=== PATIENT | female | born 1985 | race African-American/Black ===

== ENCOUNTER 2017-02-06 22:33 | Emergency (ER) | payer MEDICAID, OTHER ==
[~2017-02-06] VITALS: Ht 157.5 cm; Wt 73.0 kg
[~2017-02-06 22:33] MED LIST: ATIVAN; SEROQUEL
[2017-02-07 01:05] LABS: BASOPHILS % 0.5 % (0.0-2.0); EOSINOPHILS % 0.8 % (0.0-5.0); HEMATOCRIT. 39.2 % (36.0-48.0); HEMOGLOBIN. 12.6 g/dL (12.0-16.0); LYMPHOCYTES % 16.9 % (20.0-50.0); MEAN CORPUSCULAR HEMOGLOBIN 24.5 pg (28.0-32.0); MEAN CORPUSCULAR VOLUME 76.4 fL (81.0-99.0); MEAN PLATELET VOLUME 8.4 fl (7.4-10.4); NEUTROPHILS % 70.8 % (40.0-76.0); PLATELET 293 x1000/uL (130-400); RED BLOOD CELL COUNT 5.14 mill/uL (4.2-5.4); RED CELL DISTRIBUTION WIDTH 21.7 % (11.6-14.6)
[2017-02-07 01:09] LABS: CHLORIDE 106 mEq/L (98-107)
[2017-02-07 01:19] LABS: CARBON DIOXIDE 22 mEq/L (21-32); ETHANOL BLOOD < 10 mg/dL; HCG SCREEN NEGATIVE
[2017-02-07] MEDS ORDERED: SODIUM CHLORIDE 0.9% 1,000 ML IV ONE ×2 (01:47→06:58)
[2017-02-07 02:00] LABS: CLARITY URINE TURBID (CLEAR); COLOR URINE DARK YELLOW (YELLOW); KETONES URINE 3+ (NEGATIVE); LEUKOCYTE ESTERASE URINE 1+ (NEGATIVE); NITRITE URINE POSITIVE (NEGATIVE); OCCULT BLOOD URINE NEGATIVE (NEGATIVE); PH URINE 5.5 (4.5-8.0); PROTEIN URINE 1+ (NEGATIVE); SPECIFIC GRAVITY URINE 1.034 (1.005-1.030)
[2017-02-07] MEDS ORDERED: OLANZAPINE 2.5MG TABLET PO SCH ×2 (02:15→09:00)
[2017-02-07 02:37] LABS: *BARBITURATES SCREEN URINE NEGATIVE (NEGATIVE); *BENZODIAZEPINES SCREEN URINE NEGATIVE (NEGATIVE); *COCAINE SCREEN URINE NEGATIVE (NEGATIVE); METHADONE URINE SCREEN NEGATIVE (NEGATIVE); OPIATES URINE SCREEN NEGATIVE (NEGATIVE); PHENCYCLIDINE URINE SCREEN NEGATIVE (NEGATIVE)
[2017-02-07 02:41] LABS: *AMPHETAMINES SCREEN URINE PRESUMTIVE POSITIVE (NEGATIVE); CANNABINOID URINE SCREEN PRESUMTIVE POSITIVE (NEGATIVE)
[2017-02-07] MEDS ORDERED: CEFTRIAXONE SODIUM 250 MG/VIAL IM ONE (03:45)
[2017-02-07] MEDS ORDERED: LIDOCAINE HCL 1% 20ML VIAL (Pyxis) INJ INFIL ONE (04:45)
[2017-02-07] MEDS ORDERED: LORAZEPAM 2MG/ML CPJ IV STA (06:58)
[2017-02-07 12:54] VITALS: BP 111/71
== END 2017-02-07 14:54 | disposition home or self-care (01) ==
LOC: ER 22:59
DX: T43.621A Poisoning by amphetamines, accidental (unintentional), initial encounter (principal); G92 Toxic encephalopathy; F20.9 Schizophrenia, unspecified; D72.829 Elevated white blood cell count, unspecified; E87.6 Hypokalemia; N39.0 Urinary tract infection, site not specified; R00.0 Tachycardia, unspecified; F12.10 Cannabis abuse, uncomplicated; Z59.0 Homelessness; Y92.488 Other paved roadways as the place of occurrence of the external cause
CPT/HCPCS: 36415; 80053; 80305; 81001; 82962; 84703; 85025; 93005; 96361; 96372; 96374; 99285; G0482; J0696; J2060; J3490; Z7610; J7030

== ENCOUNTER 2020-02-14 19:36 | Emergency (ER) | payer MEDICAID ==
[~2020-02-14] VITALS: Ht 165.1 cm; Wt 64.0 kg
[2020-02-14] MEDS ORDERED: SODIUM CHLORIDE 0.9% 1,000 ML IV ONE (23:45)
[2020-02-14] MEDS ORDERED: LORAZEPAM 1MG TABLET PO ONE (23:45)
[2020-02-15 00:37] LABS: BASOPHILS % 0.2 % (0.0-2.0); EOSINOPHILS % 0.7 % (0.0-5.0); HEMATOCRIT. 42.8 % (36.0-48.0); HEMOGLOBIN. 14.4 g/dL (12.0-16.0); MEAN CORPUSCULAR HEMOGLOBIN 28.6 pg (28.0-32.0); MEAN CORPUSCULAR VOLUME 85.2 fL (81.0-99.0); MEAN PLATELET VOLUME 8.9 fl (7.4-10.4); MONOCYTES % 7.2 % (2.0-8.0); NEUTROPHILS % 58.9 % (40.0-76.0); PLATELET 237 x1000/uL (130-400); RED BLOOD CELL COUNT 5.03 mill/uL (4.2-5.4); RED CELL DISTRIBUTION WIDTH 13.5 % (11.6-14.6)
[2020-02-15 00:45] LABS: CHLORIDE 105 mEq/L (98-107)
[2020-02-15 00:50] LABS: ETHANOL BLOOD < 10 mg/dL
[2020-02-15 00:55] LABS: HCG SCREEN NEGATIVE
[2020-02-15 03:55] VITALS: BP 119/84
== END 2020-02-15 03:55 | disposition home or self-care (01) ==
LOC: ER 19:36
DX: R00.0 Tachycardia, unspecified (principal); T43.625A Adverse effect of amphetamines, initial encounter; Y93.89 Activity, other specified
CPT/HCPCS: 36415; 80053; 80320; 84703; 85025; 93005; 96360; 99284; J7030; G0480

== ENCOUNTER 2020-04-25 09:19 | Emergency (ER) | payer MEDICAID ==
[~2020-04-25] VITALS: Ht 167.6 cm; Wt 73.0 kg
[2020-04-25 09:24] VITALS: BP 114/60
[2020-04-25] MEDS ORDERED: ACETAMINOPHEN 325MG TABLET PO STA (09:45)
[2020-04-25] MEDS ORDERED: METOCLOPRAMIDE HCL 10MG TABLET PO ONE (09:45)
[2020-04-25] MEDS ORDERED: METOCLOPRAMIDE HCL 10MG/2ML VIAL IM ONE (10:00)
[2020-04-25] MEDS ORDERED: LORAZEPAM 2MG/ML CPJ IM ONE (10:30)
[2020-04-25 10:32] LABS: BASOPHILS % 0.7 % (0.0-2.0); EOSINOPHILS % 0.6 % (0.0-5.0); HEMATOCRIT. 38.9 % (36.0-48.0); HEMOGLOBIN. 13.1 g/dL (12.0-16.0); LYMPHOCYTES % 23.8 % (20.0-50.0); MEAN CORPUSCULAR HEMOGLOBIN 28.9 pg (28.0-32.0); MEAN CORPUSCULAR VOLUME 85.7 fL (81.0-99.0); MEAN PLATELET VOLUME 8.2 fl (7.4-10.4); MONOCYTES % 7.2 % (2.0-8.0); NEUTROPHILS % 67.7 % (40.0-76.0); PLATELET 219 x1000/uL (130-400); RED BLOOD CELL COUNT 4.53 mill/uL (4.2-5.4); RED CELL DISTRIBUTION WIDTH 14.9 % (11.6-14.6)
[2020-04-25 10:39] LABS: CHLORIDE 106 mEq/L (98-107)
[2020-04-25 10:43] LABS: ETHANOL BLOOD < 10 mg/dL
[2020-04-25 14:32] LABS: CLARITY URINE CLEAR (CLEAR); COLOR URINE ORANGE (YELLOW); KETONES URINE NEGATIVE (NEGATIVE); LEUKOCYTE ESTERASE URINE 3+ (NEGATIVE); NITRITE URINE NEGATIVE (NEGATIVE); OCCULT BLOOD URINE NEGATIVE (NEGATIVE); PROTEIN URINE NEGATIVE (NEGATIVE); SPECIFIC GRAVITY URINE 1.012 (1.005-1.030)
[2020-04-25 14:53] LABS: *BARBITURATES SCREEN URINE NEGATIVE (NEGATIVE); CANNABINOID URINE SCREEN NEGATIVE (NEGATIVE); PHENCYCLIDINE URINE SCREEN NEGATIVE (NEGATIVE)
[2020-04-25 14:54] LABS: *BENZODIAZEPINES SCREEN URINE NEGATIVE (NEGATIVE); *COCAINE SCREEN URINE NEGATIVE (NEGATIVE); METHADONE URINE SCREEN NEGATIVE (NEGATIVE); OPIATES URINE SCREEN NEGATIVE (NEGATIVE)
[2020-04-25 15:08] LABS: *AMPHETAMINES SCREEN URINE PRESUMTIVE POSITIVE (NEGATIVE)
== END 2020-04-25 15:31 | disposition home or self-care (01) ==
LOC: ER 09:19
DX: R51.9 Headache, unspecified (principal); F15.10 Other stimulant abuse, uncomplicated
CPT/HCPCS: 36415; 80053; 80305; 80320; 81003; 85025; 87077; 87086; 87186; 96372; 99284; J2060; J2765; Z7610; G0480

== ENCOUNTER 2020-06-07 18:15 | Emergency (ER) | payer MEDICAID ==
[~2020-06-07] VITALS: Ht 165.1 cm; Wt 79.4 kg
[2020-06-07] MEDS ORDERED: OFLO5DRO4 RIGHT EAR (18:40)
[2020-06-07] MEDS ORDERED: TOPUD PO (18:40)
[2020-06-07] MEDS ORDERED: ACETAMINOPHEN 325MG TABLET PO ONE (18:45)
[2020-06-07 19:10] VITALS: BP 164/72
== END 2020-06-07 19:11 | disposition home or self-care (01) ==
LOC: ER 18:15
DX: H60.91 Unspecified otitis externa, right ear (principal); E11.9 Type 2 diabetes mellitus without complications
CPT/HCPCS: 99283

== ENCOUNTER 2020-08-14 23:29 | Observation (INO) | payer MEDICAID ==
[~2020-08-14] VITALS: Ht 163.8 cm; Wt 95.3 kg
[~2020-08-14 23:29] MED LIST changes: +OFLO5DRO4 RIGHT EAR; +TOPUD PO
[2020-08-14] MEDS ORDERED: INSULIN (23:45)
[2020-08-14] MEDS ORDERED: [UNRECOGNIZED DRUG - OTHER] (23:45)
[2020-08-14] MEDS ORDERED: HALDOL (23:45)
[2020-08-14] MEDS ORDERED: PREN-176 PO (23:46)
[2020-08-15] MEDS: LACTATED RINGERS 1,000 ML IV SCH ×3 (01:27→05:17)
[2020-08-15 01:45] LABS: BASOPHILS % 0.3 % (0.0-2.0); EOSINOPHILS % 1.7 % (0.0-5.0); HEMATOCRIT. 36.4 % (36.0-48.0); HEMOGLOBIN. 12.4 g/dL (12.0-16.0); LYMPHOCYTES % 22.1 % (20.0-50.0); MEAN CORPUSCULAR HEMOGLOBIN 29.8 pg (28.0-32.0); MEAN CORPUSCULAR VOLUME 87.3 fL (81.0-99.0); MEAN PLATELET VOLUME 8.2 fl (7.4-10.4); MONOCYTES % 5.8 % (2.0-8.0); NEUTROPHILS % 70.1 % (40.0-76.0); PLATELET 143 x1000/uL (130-400); RED BLOOD CELL COUNT 4.17 mill/uL (4.2-5.4); RED CELL DISTRIBUTION WIDTH 14.4 % (11.6-14.6)
[2020-08-15 01:53] LABS: CHLORIDE 105 mEq/L (98-107)
[2020-08-15 01:58] LABS: D-DIMER 1.19 mg/L FEU (<0.50); INR 0.9; PARTIAL THROMBOPLASTIN TIME 24.9 sec (23.4-31.0); PROTHROMBIN TIME 10.2 sec (9.6-11.0)
[2020-08-15 02:21] LABS: HEPATITIS B SURFACE ANTIGEN NEGATIVE
[2020-08-15 03:04] LABS: CLARITY URINE CLEAR (CLEAR); COLOR URINE YELLOW (YELLOW); KETONES URINE TRACE (NEGATIVE); LEUKOCYTE ESTERASE URINE 1+ (NEGATIVE); NITRITE URINE NEGATIVE (NEGATIVE); OCCULT BLOOD URINE NEGATIVE (NEGATIVE); PROTEIN URINE NEGATIVE (NEGATIVE); SPECIFIC GRAVITY URINE 1.029 (1.005-1.030)
[2020-08-15 03:19] LABS: *BARBITURATES SCREEN URINE NEGATIVE (NEGATIVE); *BENZODIAZEPINES SCREEN URINE NEGATIVE (NEGATIVE)
[2020-08-15 03:20] LABS: *COCAINE SCREEN URINE NEGATIVE (NEGATIVE); CANNABINOID URINE SCREEN NEGATIVE (NEGATIVE); METHADONE URINE SCREEN NEGATIVE (NEGATIVE); OPIATES URINE SCREEN NEGATIVE (NEGATIVE); PHENCYCLIDINE URINE SCREEN NEGATIVE (NEGATIVE)
[2020-08-15 03:25] LABS: *AMPHETAMINES SCREEN URINE PRESUMTIVE POSITIVE (NEGATIVE)
[2020-08-15] MEDS ORDERED: TERBUTALINE SULFATE 1MG/ML VIAL SUBCUT PRN (05:00)
[2020-08-15] MEDS ORDERED: TERBUTALINE SULFATE 1MG/ML VIAL ONE (05:09)
[2020-08-15] MEDS ORDERED: INSULIN LISPRO 100 UNITS/ML SUBCUT SCH (13:00)
[2020-08-15] MEDS ORDERED: BLOOD SUGAR DIAGNOSTIC STRIP TEST SCH (13:00)
[2020-08-15] MEDS ORDERED: METFORMIN HCL 500MG TABLET PO SCH (17:00)
== END 2020-08-15 14:35 | disposition home or self-care (01) ==
LOC: 8 EST LDRP 23:29 → UNDODISOB 08-15 07:50 → 8 EST A/PP 08-15 10:18
PROVIDERS: ADMIT Obstetrics & Gynecology; ATTEND Obstetrics & Gynecology
DX: O26.892 Other specified pregnancy related conditions, second trimester (principal); R10.9 Unspecified abdominal pain; O99.342 Other mental disorders complicating pregnancy, second trimester; F20.9 Schizophrenia, unspecified; F31.9 Bipolar disorder, unspecified; O99.413 Diseases of the circulatory system complicating pregnancy, third trimester; E78.5 Hyperlipidemia, unspecified; O24.912 Unspecified diabetes mellitus in pregnancy, second trimester; Z3A.25 25 weeks gestation of pregnancy; Z79.899 Other long term (current) drug therapy
CPT/HCPCS: 36415; 59025; 76805; 76818; 80053; 80305; 80359; 81003; 84550; 85025; 85379; 85384; 85610; 85730; 86592; 86703; 86762; 86850; 86900; 86901; 87340; 96360; 96361; 96372; G0378; J3105

== ENCOUNTER 2020-08-15 08:10 | Emergency (ER) | payer MEDICAID ==
[~2020-08-15] VITALS: Ht 162.6 cm; Wt 96.0 kg
[~2020-08-15 08:10] MED LIST changes: +HALDOL; +INSULIN; +PREN-176 PO; +[UNRECOGNIZED DRUG - OTHER]
[2020-08-15 09:17] VITALS: BP 121/67
== END 2020-08-15 09:25 | disposition home or self-care (01) ==
LOC: ER 08:10
DX: O26.893 Other specified pregnancy related conditions, third trimester (principal); O98.513 Other viral diseases complicating pregnancy, third trimester; O99.513 Diseases of the respiratory system complicating pregnancy, third trimester; F15.10 Other stimulant abuse, uncomplicated; Z20.822 Contact with and (suspected) exposure to COVID-19; Z13.9 Encounter for screening, unspecified; Z3A.28 28 weeks gestation of pregnancy
CPT/HCPCS: 36415; 80307; 80329; 87426; 96360; 96361; 96372; 99281; 99283

== ENCOUNTER 2020-11-21 18:23 | Emergency (ER) | payer MEDICAID, OTHER ==
[~2020-11-21] VITALS: Ht 167.6 cm; Wt 90.0 kg
[2020-11-21] MEDS ORDERED: ACETAMINOPHEN 325MG TABLET PO STA (18:59)
[2020-11-21 19:18] LABS: HEMATOCRIT. 39.5 % (36.0-48.0); HEMOGLOBIN. 13.3 g/dL (12.0-16.0); MEAN CORPUSCULAR HEMOGLOBIN 28.6 pg (28.0-32.0); MEAN CORPUSCULAR VOLUME 85.3 fL (81.0-99.0); MEAN PLATELET VOLUME 8.7 fl (7.4-10.4); PLATELET 219 x1000/uL (130-400); RED BLOOD CELL COUNT 4.63 mill/uL (4.2-5.4); RED CELL DISTRIBUTION WIDTH 14.3 % (11.6-14.6)
[2020-11-21 19:23] LABS: CHLORIDE 108 mEq/L (98-107)
[2020-11-21 19:26] LABS: INR 0.9; PROTHROMBIN TIME 10.1 sec (9.6-11.0)
[2020-11-21 19:30] LABS: HCG SCREEN NEGATIVE
[2020-11-21 19:41] LABS: PLATELET ESTIMATE NORMAL
[2020-11-21 19:56] LABS: CLARITY URINE CLEAR (CLEAR); COLOR URINE YELLOW (YELLOW); KETONES URINE NEGATIVE (NEGATIVE); LEUKOCYTE ESTERASE URINE 1+ (NEGATIVE); NITRITE URINE NEGATIVE (NEGATIVE); OCCULT BLOOD URINE NEGATIVE (NEGATIVE); PROTEIN URINE NEGATIVE (NEGATIVE); UROBILINOGEN URINE 0.2 E.U./dL (0.2-1.0)
[2020-11-21 20:07] LABS: *AMPHETAMINES SCREEN URINE NEGATIVE (NEGATIVE); *BARBITURATES SCREEN URINE NEGATIVE (NEGATIVE)
[2020-11-21 20:08] LABS: *BENZODIAZEPINES SCREEN URINE NEGATIVE (NEGATIVE); *COCAINE SCREEN URINE NEGATIVE (NEGATIVE); CANNABINOID URINE SCREEN NEGATIVE (NEGATIVE); METHADONE URINE SCREEN NEGATIVE (NEGATIVE); OPIATES URINE SCREEN NEGATIVE (NEGATIVE); PHENCYCLIDINE URINE SCREEN NEGATIVE (NEGATIVE)
[2020-11-21] MEDS ORDERED: KETOROLAC 15MG/ML VIAL IV ONE (21:45)
[2020-11-21] MEDS ORDERED: AZITHROMYCIN 500 MG TABLET PO ONE (23:15)
[2020-11-21] MEDS ORDERED: CEFTRIAXONE SODIUM 500 MG/VIAL IM ONE (23:15)
[2020-11-21 23:40] VITALS: BP 133/72
== END 2020-11-21 23:40 | disposition home or self-care (01) ==
LOC: ER 18:23
DX: R10.32 Left lower quadrant pain (principal); R35.0 Frequency of micturition; F31.9 Bipolar disorder, unspecified; F20.9 Schizophrenia, unspecified; F15.10 Other stimulant abuse, uncomplicated
CPT/HCPCS: 36415; 76856; 80053; 80305; 81003; 83605; 83690; 84703; 85025; 85610; 93005; 96372; 96374; 99285; J0696; J1885

== ENCOUNTER 2020-12-10 20:31 | Emergency (ER) | payer OTHER ==
[~2020-12-10] VITALS: Ht 165.1 cm; Wt 69.0 kg
[2020-12-10 22:00] LABS: HEMATOCRIT 37.3 % (36.0-48.0); HEMOGLOBIN 12.3 g/dL (12.0-16.0); MEAN CORPUSCULAR HEMOGLOBIN 28.5 pg (28.0-32.0); MEAN CORPUSCULAR VOLUME 86.4 fL (81.0-99.0); PLATELET 242 x1000/uL (130-400); RED BLOOD CELL COUNT 4.32 mill/uL (4.2-5.4); RED CELL DISTRIBUTION WIDTH 15.9 % (11.6-14.6)
[2020-12-10 22:07] LABS: CHLORIDE 109 mEq/L (98-107)
[2020-12-10 22:56] LABS: *AMPHETAMINES SCREEN URINE NEGATIVE (NEGATIVE); *BARBITURATES SCREEN URINE NEGATIVE (NEGATIVE); *BENZODIAZEPINES SCREEN URINE NEGATIVE (NEGATIVE); *COCAINE SCREEN URINE NEGATIVE (NEGATIVE); CANNABINOID URINE SCREEN NEGATIVE (NEGATIVE); OPIATES URINE SCREEN NEGATIVE (NEGATIVE); PHENCYCLIDINE URINE SCREEN NEGATIVE (NEGATIVE)
[2020-12-10 22:57] LABS: METHADONE URINE SCREEN NEGATIVE (NEGATIVE)
[2020-12-10 23:47] VITALS: BP 148/98
== END 2020-12-10 23:48 | disposition home or self-care (01) ==
LOC: ER 20:31
DX: R00.2 Palpitations (principal); E11.9 Type 2 diabetes mellitus without complications; Z88.8 Allergy status to other drugs, medicaments and biological substances
CPT/HCPCS: 36415; 80053; 80305; 81025; 84443; 84484; 85027; 99283

== ENCOUNTER 2021-03-25 08:03 | Emergency (ER) | payer MEDICAID, OTHER ==
[~2021-03-25] VITALS: Ht 165.1 cm; Wt 70.0 kg
[2021-03-25 08:09] VITALS: BP 151/74
[2021-03-25] MEDS ORDERED: TOPUD PO (08:22)
[2021-03-25] MEDS ORDERED: ACETAMINOPHEN 325MG TABLET PO ONE (08:30)
== END 2021-03-25 09:25 | disposition home or self-care (01) ==
LOC: ER 08:03
DX: R53.1 Weakness (principal); M54.50 Low back pain, unspecified; F15.10 Other stimulant abuse, uncomplicated; E11.9 Type 2 diabetes mellitus without complications; Z79.4 Long term (current) use of insulin; Z88.8 Allergy status to other drugs, medicaments and biological substances
CPT/HCPCS: 99283

== ENCOUNTER 2021-05-02 10:33 | Emergency (ER) | payer SELFPAY ==
[~2021-05-02] VITALS: Ht 162.6 cm; Wt 72.0 kg
[2021-05-02] MEDS ORDERED: LORAZEPAM 2MG/ML CPJ IV STA (10:56)
[2021-05-02] MEDS ORDERED: SODIUM CHLORIDE 0.9% 1,000 ML IV ONE (11:00)
[2021-05-02 11:26] LABS: BASOPHILS % 0.6 % (0.0-2.0); EOSINOPHILS % 1.7 % (0.0-5.0); HEMATOCRIT. 40.8 % (36.0-48.0); HEMOGLOBIN. 13.6 g/dL (12.0-16.0); MEAN CORPUSCULAR HEMOGLOBIN 28.5 pg (28.0-32.0); MEAN CORPUSCULAR VOLUME 85.3 fL (81.0-99.0); MEAN PLATELET VOLUME 8.6 fl (7.4-10.4); MONOCYTES % 8.7 % (2.0-8.0); PLATELET 225 x1000/uL (130-400); RED BLOOD CELL COUNT 4.78 mill/uL (4.2-5.4); RED CELL DISTRIBUTION WIDTH 15.3 % (11.6-14.6)
[2021-05-02 11:37] LABS: CHLORIDE 105 mEq/L (98-107)
[2021-05-02 13:53] LABS: HCG SCREEN NEGATIVE
[2021-05-02 16:18] VITALS: BP 143/85
== END 2021-05-02 16:23 | disposition home or self-care (01) ==
LOC: ER 10:40
DX: R07.9 Chest pain, unspecified (principal); R55 Syncope and collapse; F31.9 Bipolar disorder, unspecified; E11.9 Type 2 diabetes mellitus without complications; F20.9 Schizophrenia, unspecified; Z79.4 Long term (current) use of insulin; Z88.8 Allergy status to other drugs, medicaments and biological substances; Z85.818 Personal history of malignant neoplasm of other sites of lip, oral cavity, and pharynx
CPT/HCPCS: 36415; 71045; 80053; 80320; 81025; 84703; 85025; 93005; 96361; 96374; 99285; J2060; J7030; G0480

== ENCOUNTER 2021-05-14 21:37 | Emergency (ER) | payer MEDICAID ==
[~2021-05-14] VITALS: Ht 165.1 cm; Wt 64.0 kg
[2021-05-14] MEDS ORDERED: DIPHENHYDRAMINE 25MG CAPSULE PO ONE (23:00)
[2021-05-14] MEDS ORDERED: CETI-338 PO (23:42)
[2021-05-14 23:44] VITALS: BP 114/56
== END 2021-05-14 23:59 | disposition home or self-care (01) ==
LOC: ER 21:37
DX: F41.9 Anxiety disorder, unspecified (principal); T78.40XA Allergy, unspecified, initial encounter; X58.XXXA Exposure to other specified factors, initial encounter; F31.9 Bipolar disorder, unspecified; E11.9 Type 2 diabetes mellitus without complications; F20.9 Schizophrenia, unspecified; Z79.4 Long term (current) use of insulin; Z88.8 Allergy status to other drugs, medicaments and biological substances; Z91.14 Patient's other noncompliance with medication regimen
CPT/HCPCS: 99283; Q0163

== ENCOUNTER 2021-05-25 00:39 | Emergency (ER) | payer MEDICAID ==
[~2021-05-25] VITALS: Ht 167.6 cm; Wt 70.0 kg
[~2021-05-25 00:39] MED LIST changes: +CETI-338 PO
[2021-05-25] MEDS ORDERED: MAGNESIUM/ALUMINUM HYDROXIDE/SIMETHICONE 30ML UDC PO STA (01:53)
[2021-05-25] MEDS ORDERED: DICYCLOMINE 10 MG/5 ML ORAL SYR PO STA (01:53)
[2021-05-25 02:29] LABS: BASOPHILS % 0.4 % (0.0-2.0); EOSINOPHILS % 2.5 % (0.0-5.0); HEMATOCRIT. 36.1 % (36.0-48.0); HEMOGLOBIN. 12.2 g/dL (12.0-16.0); LYMPHOCYTES % 38.3 % (20.0-50.0); MEAN CORPUSCULAR HEMOGLOBIN 29.1 pg (28.0-32.0); MEAN CORPUSCULAR VOLUME 86.5 fL (81.0-99.0); MEAN PLATELET VOLUME 9.2 fl (7.4-10.4); MONOCYTES % 7.8 % (2.0-8.0); PLATELET 227 x1000/uL (130-400); RED BLOOD CELL COUNT 4.18 mill/uL (4.2-5.4); RED CELL DISTRIBUTION WIDTH 14.9 % (11.6-14.6)
[2021-05-25 02:40] LABS: CHLORIDE 110 mEq/L (98-107)
[2021-05-25 02:47] LABS: HCG SCREEN NEGATIVE
[2021-05-25 04:21] VITALS: BP 128/77
== END 2021-05-25 08:30 | disposition home or self-care (01) ==
LOC: ER 00:39
DX: A05.9 Bacterial foodborne intoxication, unspecified (principal); K80.80 Other cholelithiasis without obstruction; E11.9 Type 2 diabetes mellitus without complications; F20.9 Schizophrenia, unspecified; Z79.4 Long term (current) use of insulin; Z88.0 Allergy status to penicillin
CPT/HCPCS: 36415; 76705; 80053; 81025; 84703; 85025; 93005; 99285

== ENCOUNTER 2021-10-13 14:46 | Emergency (ER) | payer MEDICAID, OTHER | END 2021-10-13 17:14 | disposition left against medical advice (07) | LOC: ER 14:46 | DX: Z53.21 Procedure and treatment not carried out due to patient leaving prior to being seen by health care provider (principal) ==

== ENCOUNTER 2021-11-25 00:08 | Emergency (ER) | payer OTHER ==
[~2021-11-25] VITALS: Ht 157.5 cm; Wt 59.0 kg
[2021-11-25 00:11] VITALS: BP 124/81
[2021-11-25] MEDS ORDERED: METF-414 MT (00:39)
== END 2021-11-25 01:10 | disposition home or self-care (01) ==
LOC: ER 00:30
DX: Z76.0 Encounter for issue of repeat prescription (principal); E11.9 Type 2 diabetes mellitus without complications; H92.01 Otalgia, right ear; Z88.8 Allergy status to other drugs, medicaments and biological substances
CPT/HCPCS: 99283

== ENCOUNTER 2022-05-16 03:07 | Emergency (ER) | payer MEDICAID, OTHER ==
[~2022-05-16] VITALS: Ht 165.1 cm; Wt 70.0 kg
[~2022-05-16 03:07] MED LIST changes: +METF-414 MT
[2022-05-16 03:12] VITALS: BP 131/78
[2022-05-16] MEDS ORDERED: LORAZEPAM 0.5MG TABLET PO ONE (04:00)
[2022-05-16] MEDS ORDERED: HYDR50SY PO (19:26)
== END 2022-05-16 09:00 | disposition home or self-care (01) ==
LOC: ER 03:18
DX: F41.9 Anxiety disorder, unspecified (principal); E11.9 Type 2 diabetes mellitus without complications; Z79.899 Other long term (current) drug therapy
CPT/HCPCS: 99283

== ENCOUNTER 2022-05-16 10:38 | Emergency (ER) | payer MEDICAID, OTHER ==
[~2022-05-16] VITALS: Ht 165.1 cm; Wt 69.0 kg
[2022-05-16 10:57] VITALS: BP 122/59
[2022-05-16] MEDS ORDERED: HYDR50SY PO (19:26)
[2022-05-16 19:40] LABS: BASOPHILS % 0.2 % (0.0-2.0); EOSINOPHILS % 1.4 % (0.0-5.0); HEMATOCRIT. 33.8 % (36.0-48.0); HEMOGLOBIN. 10.7 g/dL (12.0-16.0); LYMPHOCYTES % 30.2 % (20.0-50.0); MEAN CORPUSCULAR HEMOGLOBIN 26.7 pg (28.0-32.0); MEAN CORPUSCULAR VOLUME 83.8 fL (81.0-99.0); MEAN PLATELET VOLUME 8.1 fl (7.4-10.4); MONOCYTES % 11.6 % (2.0-8.0); NEUTROPHILS % 56.6 % (40.0-76.0); PLATELET 279 x1000/uL (130-400); RED BLOOD CELL COUNT 4.03 mill/uL (4.2-5.4); RED CELL DISTRIBUTION WIDTH 19.1 % (11.6-14.6)
[2022-05-16 19:54] LABS: CHLORIDE 108 mEq/L (98-107)
[2022-05-16 19:57] LABS: HCG SCREEN NEGATIVE
[2022-05-16 20:01] LABS: ETHANOL BLOOD < 10 mg/dL
== END 2022-05-16 19:50 | disposition home or self-care (01) ==
LOC: ER 10:40
DX: F41.9 Anxiety disorder, unspecified (principal); E11.9 Type 2 diabetes mellitus without complications; Z79.899 Other long term (current) drug therapy
CPT/HCPCS: 36415; 80053; 80320; 84703; 85025; 99283; G0480

== ENCOUNTER 2022-06-24 18:51 | Emergency (ER) | payer MEDICAID ==
[~2022-06-24] VITALS: Ht 160 cm; Wt 59.0 kg
[~2022-06-24 18:51] MED LIST changes: +HYDR50SY PO
[2022-06-24 21:39] VITALS: BP 116/70
[2022-06-24] MEDS ORDERED: IBUPROFEN 600MG TABLET PO ONE (21:45)
[2022-06-24] MEDS ORDERED: ACETAMINOPHEN 325MG TABLET PO ONE (21:45)
[2022-06-24] MEDS ORDERED: AMOX1TAB16 MT (22:43)
[2022-06-24] MEDS ORDERED: OLAN10TA6 MT (22:43)
[2022-06-24] MEDS ORDERED: TOPUD MT (22:43)
[2022-06-24] MEDS ORDERED: PERM60CR4 TP (22:43)
[2022-06-24] MEDS ORDERED: OLANZAPINE 10MG TABLET PO SCH (22:45)
== END 2022-06-25 00:10 | disposition home or self-care (01) ==
LOC: ER 18:51
DX: J34.89 Other specified disorders of nose and nasal sinuses (principal); F41.9 Anxiety disorder, unspecified; J45.909 Unspecified asthma, uncomplicated; E11.9 Type 2 diabetes mellitus without complications; I10 Essential (primary) hypertension; Z79.899 Other long term (current) drug therapy
CPT/HCPCS: 99283

== ENCOUNTER 2022-08-03 19:13 | Emergency (ER) | payer MEDICAID ==
[~2022-08-03] VITALS: Ht 162.6 cm; Wt 70.0 kg
[~2022-08-03 19:13] MED LIST changes: +AMOX1TAB16 MT; +OLAN10TA6 MT; +PERM60CR4 TP; +TOPUD MT
[2022-08-03] MEDS ORDERED: ACETAMINOPHEN 325MG TABLET PO STA (19:34)
[2022-08-03] MEDS ORDERED: SODIUM CHLORIDE 0.9% 1000ML BAG (SEPSIS BOLUS) IV ONE (19:45)
[2022-08-03] MEDS ORDERED: LORAZEPAM 2MG/ML CPJ IV ONE (19:45)
[2022-08-03] MEDS ORDERED: CEFTRIAXONE 1GM PREMIX 50 ML IV ONE (19:45)
[2022-08-03] MEDS ORDERED: LORAZEPAM 2MG/ML CPJ IM ONE (20:30)
[2022-08-03] MEDS ORDERED: HALOPERIDOL LACTATE 5MG/ML VIAL IM ONE (20:30)
[2022-08-03 21:01] LABS: BASOPHILS % 0.2 % (0.0-2.0); EOSINOPHILS % 2.8 % (0.0-5.0); HEMATOCRIT. 31.3 % (36.0-48.0); HEMOGLOBIN. 10.2 g/dL (12.0-16.0); MEAN CORPUSCULAR VOLUME 82.7 fL (81.0-99.0); MEAN PLATELET VOLUME 8.5 fl (7.4-10.4); MONOCYTES % 11.6 % (2.0-8.0); NEUTROPHILS % 53.4 % (40.0-76.0); PLATELET 247 x1000/uL (130-400); RED BLOOD CELL COUNT 3.79 mill/uL (4.2-5.4); RED CELL DISTRIBUTION WIDTH 20.6 % (11.6-14.6)
[2022-08-03 21:13] LABS: CHLORIDE 112 mEq/L (98-107)
[2022-08-03 21:19] LABS: HCG SCREEN NEGATIVE
[2022-08-03 21:21] LABS: ETHANOL BLOOD < 10 mg/dL (-10)
[2022-08-04 11:08] VITALS: BP 128/80
== END 2022-08-04 14:07 | disposition home or self-care (01) ==
LOC: ER 19:13
DX: F07.0 Personality change due to known physiological condition (principal); J45.909 Unspecified asthma, uncomplicated; E11.9 Type 2 diabetes mellitus without complications; I10 Essential (primary) hypertension; F41.9 Anxiety disorder, unspecified; Z20.822 Contact with and (suspected) exposure to COVID-19; Z79.899 Other long term (current) drug therapy; Z88.8 Allergy status to other drugs, medicaments and biological substances
CPT/HCPCS: 36415; 70450; 71045; 80053; 80307; 80320; 80329; 82140; 84484; 84703; 85025; 87426; 96372; 99285; C9803; J1630; J2060; J7030; G0480

== ENCOUNTER 2022-08-28 02:29 | Emergency (ER) | payer MEDICAID, OTHER ==
[~2022-08-28] VITALS: Ht 162.6 cm; Wt 77.0 kg
[2022-08-28 02:51] VITALS: BP 130/49; PULSE 101; RESP 18; TEMP 98.6; O2SAT 96
[2022-08-28 05:48] LABS: BASOPHILS % 1.1 % (0.0-2.0); EOSINOPHILS % 1.5 % (0.0-5.0); HEMATOCRIT. 34.9 % (36.0-48.0); HEMOGLOBIN. 11.2 g/dL (12.0-16.0); LYMPHOCYTES % 17.3 % (20.0-50.0); MEAN CORPUSCULAR HEMOGLOBIN 26.1 pg (28.0-32.0); MEAN CORPUSCULAR VOLUME 81.5 fL (81.0-99.0); MEAN PLATELET VOLUME 8.7 fl (7.4-10.4); MONOCYTES % 10.8 % (2.0-8.0); NEUTROPHILS % 69.3 % (40.0-76.0); PLATELET 274 x1000/uL (130-400); RED BLOOD CELL COUNT 4.28 mill/uL (4.2-5.4); RED CELL DISTRIBUTION WIDTH 21.5 % (11.6-14.6)
[2022-08-28 05:57] LABS: CHLORIDE 107 mEq/L (98-107)
[2022-08-28 06:03] LABS: CLARITY URINE CLEAR (CLEAR); COLOR URINE YELLOW (YELLOW); KETONES URINE 2+ (NEGATIVE); LEUKOCYTE ESTERASE URINE NEGATIVE (NEGATIVE); NITRITE URINE NEGATIVE (NEGATIVE); OCCULT BLOOD URINE NEGATIVE (NEGATIVE); PH URINE 5.5 (4.5-8.0); PROTEIN URINE TRACE (NEGATIVE)
[2022-08-28 06:17] LABS: *BARBITURATES SCREEN URINE NEGATIVE (NEGATIVE); *BENZODIAZEPINES SCREEN URINE NEGATIVE (NEGATIVE); *COCAINE SCREEN URINE NEGATIVE (NEGATIVE); CANNABINOID URINE SCREEN NEGATIVE (NEGATIVE); METHADONE URINE SCREEN NEGATIVE (NEGATIVE); OPIATES URINE SCREEN NEGATIVE (NEGATIVE); PHENCYCLIDINE URINE SCREEN NEGATIVE (NEGATIVE)
[2022-08-28 06:23] LABS: *AMPHETAMINES SCREEN URINE PRESUMTIVE POSITIVE (NEGATIVE)
== END 2022-08-28 06:30 | disposition home or self-care (01) ==
LOC: ER 02:29
DX: R53.83 Other fatigue (principal); E11.9 Type 2 diabetes mellitus without complications; I10 Essential (primary) hypertension; Z79.899 Other long term (current) drug therapy
CPT/HCPCS: 36415; 71045; 80048; 80305; 81003; 81025; 85025; 99284